=== PATIENT | male | born 1995 | race African-American/Black ===

== ENCOUNTER 2020-11-27 08:33 | Emergency (ER) | payer OTHER, SELFPAY ==
[2020-11-27 10:42] LABS: SARS-COV-2 RT PCR NEGATIVE (NEGATIVE)
--- NOTE | 2020-11-27 10:59 | ER ---
Nurse's Notes [facility] Name: Arthur Scanlon Jr Age: 25 yrs Sex: Male : 1995 Arrival Date: 11/27/2020 Time: 08:35 Bed 6 Private MD: Diagnosis: Acute pharyngitis Presentation: 11/27 08:47 Chief complaint: Patient states: Sore throat, cough, N/V/D, intermittent fever, DUBON x 1 jl7 week, reports sore chest with cough. Coronavirus screen: Client denies travel out of the [place] in the last 14 days. cough unrelated to allergies, diarrhea, fever, headache, nausea, runny nose, sore throat, vomiting. Ebola Screen: No symptoms or risks identified at this time. Initial Sepsis Screen: Does the patient meet any 2 criteria? No. Patient's initial sepsis screen is negative. Does the patient have a suspected source of infection? No. Patient's initial sepsis screen is negative. Risk Assessment: Do you want to hurt yourself or someone else? Patient reports no desire to harm self or others. Onset of symptoms was November 21, 2020. Care prior to arrival: None. 08:47 Method Of Arrival: Ambulatory jl7 08:47 Acuity: BHARATH 4 jl7 Triage Assessment: 08:50 General: Appears in no apparent distress. uncomfortable, Behavior is calm, cooperative, jl7 appropriate for age. Pain: Complains of pain in DUBON, Sore throat Pain currently is 8 out of 10 on a pain scale. EENT: Oral mucosa is dry. Neuro: Level of Consciousness is awake, alert, obeys commands, Oriented to person, place, time, situation. Cardiovascular: Patient's skin is warm and dry. Respiratory: Airway is patent Respiratory effort is even, unlabored, Respiratory pattern is regular, symmetrical. GI: Reports diarrhea, nausea, vomiting. Derm: Skin is dry, Skin is normal, Skin temperature is warm. Historical: - Allergies: 08:50 PENICILLINS; jl7 - Home Meds: 08:50 None [Active]; jl7 - PMHx: 08:50 None; jl7 - PSHx: 08:50 None; jl7 - Immunization history:: Adult Immunizations not up to date. - Social history:: Smoking status: Patient denies any tobacco usage or history of. - Family history:: not pertinent. - Hospitalizations: : No recent hospitalization is reported. Screenin:00 Abuse screen: Denies threats or abuse. Denies injuries from another. Nutritional jl7 screening: No deficits noted. Tuberculosis screening: No symptoms or risk factors identified. Fall Risk None identified. Assessment: 09:00 General: see triage assessment. jl7 10:27 Reassessment: Patient appears in no apparent distress at this time. No changes from jl7 previously documented assessment. Patient and/or family updated on plan of care and expected duration. Pain level reassessed. Patient is alert, oriented x 3, equal unlabored respirations, skin warm/dry/pink. Awaiting lab results. 10:59 Reassessment: ERD at bedside discussing results and POC. jl7 Vital Signs: 08:47 BP 147 / 97; Pulse 77; Resp 17; Temp 98; Pulse Ox 98% ; Weight 124.74 kg; Height 6 ft. jl7 0 in. (182.88 cm); Pain 8/10; 10:26 BP 120 / 80; Pulse 84; Resp 15; Pulse Ox 97% ; jl7 08:47 Body Mass Index 37.30 (124.74 kg, 182.88 cm) jl7 ED Course: 08:35 Patient arrived in ED. ag5 08:40 Peterson Squires MD is Attending Physician. rn 08:41 Debbie Pena, FARTUN is Primary Nurse. jl7 08:49 Triage completed. jl7 08:50 Arm band placed on right wrist. jl7 09:00 Patient has correct armband on for positive identification. Bed in low position. Call jl7 light in reach. Side rails up X 1. Pulse ox on. NIBP on. 09:20 COVID swab sent to lab. Strep swab sent to lab. jl7 11:03 No provider procedures requiring assistance completed. Patient did not have IV access jl7 during this emergency room visit. Administered Medications: No medications were administered Outcome: 10:58 Discharge ordered by . rn 11:03 Discharged to home ambulatory. jl7 11:03 Condition: stable 11:03 Discharge instructions given to patient, Instructed on discharge instructions, follow up and referral plans. medication usage, Demonstrated understanding of instructions, follow-up care, medications, Prescriptions given X 1. 11:04 Patient left the ED. jl7 Signatures: Peterson Squires MD MD rn Debbie Pena RN RN jl7 Catalina Headley ag5
--- NOTE | 2020-11-27 10:59 | EDPHYS ---
Physician Documentation [facility] Name: Arthur Scanlon Jr Age: 25 yrs Sex: Male : 1995 Arrival Date: 11/27/2020 Time: 08:35 Bed 6 Private MD: ED Physician Peterson Squires HPI: 11/27 08:48 This 25 yrs old Black Male presents to ER via Unassigned with complaints of Sore rn Throat, cough, URI. 08:48 The patient presents with sore throat. The patient describes throat pain as rn intermittent, raw. Onset: The symptoms/episode began/occurred 1 week(s) ago. Severity of symptoms: At their worst the symptoms were mild, in the emergency department the symptoms are unchanged. Modifying factors: The symptoms are alleviated by nothing. Associated signs and symptoms: Pertinent positives: cough, rhinorrhea, Sore throat Pertinent negatives fever, shortness of breath. The patient has experienced similar episodes in the past. The patient has not recently seen a physician. Reports sore throat, runny nose, nausea, diarrhea, fatigue, taste is a little off, present for 1 week. Girlfriend's mom with COVID but no direct exposure. . Historical: - Allergies: 08:50 PENICILLINS; jl7 - Home Meds: 08:50 None [Active]; jl7 - PMHx: 08:50 None; jl7 - PSHx: 08:50 None; jl7 - Immunization history:: Adult Immunizations not up to date. - Social history:: Smoking status: Patient denies any tobacco usage or history of. - Family history:: not pertinent. - Hospitalizations: : No recent hospitalization is reported. ROS: 08:48 Constitutional: Negative for fever, chills, and weight loss, Eyes: Negative for injury, rn pain, redness, and discharge, ENT: + sore throat and nasal congestion Neck: Negative for injury, pain, and swelling, Cardiovascular: Negative for palpitations, and edema, Respiratory: + cough, neg for sob and hemoptysis Abdomen/GI: Negative for abdominal pain, and constipation, Back: Negative for injury and pain, MS/Extremity: Negative for injury and deformity, Skin: Negative for injury, rash, and discoloration, Neuro: Negative for headache, weakness, numbness, tingling, and seizure. Exam: 08:48 Constitutional: This is a well developed, well nourished patient who is awake, alert, rn and in no acute distress. Ambulatory to room without difficulty. Head/Face: Normocephalic, atraumatic. Eyes: Pupils equal round and reactive to light, extra-ocular motions intact. Lids and lashes normal. Conjunctiva and sclera are non-icteric and not injected. Cornea within normal limits. Periorbital areas with no swelling, redness, or edema. ENT: MMM, mild pharyngeal erythema, no exudate, no swelling, uvula midline Neck: Trachea midline, no masses palpated, and no cervical lymphadenopathy. Supple, full range of motion without nuchal rigidity, or vertebral point tenderness. No Meningismus. Cardiovascular: Regular rate and rhythm. No pulse deficits. Respiratory: No increased work of breathing, no retractions or nasal flaring. Abdomen/GI: soft, non-tender Skin: Warm, dry MS/ Extremity: Pulses equal, no cyanosis. Vital Signs: 08:47 BP 147 / 97; Pulse 77; Resp 17; Temp 98; Pulse Ox 98% ; Weight 124.74 kg; Height 6 ft. jl7 0 in. (182.88 cm); Pain 8/10; 10:26 BP 120 / 80; Pulse 84; Resp 15; Pulse Ox 97% ; jl7 08:47 Body Mass Index 37.30 (124.74 kg, 182.88 cm) jl7 MDM: 08:40 Patient medically screened. rn 10:58 Differential diagnosis: group A strep tonsillitis, influenza, pharyngitis, upper rn respiratory infection, viral syndrome COVID. Data reviewed: vital signs, nurses notes, lab test result(s), and as a result, I will discharge patient. Counseling: I had a detailed discussion with the patient and/or guardian regarding: the historical points, exam findings, and any diagnostic results supporting the discharge/admit diagnosis, lab results, the need for outpatient follow up, to return to the emergency department if symptoms worsen or persist or if there are any questions or concerns that arise at home. Special discussion: I discussed with the patient/guardian in detail that at this point there is no indication for admission to the hospital. It is understood, however, that if the symptoms persist or worsen the patient needs to return immediately for re-evaluation. 11/27 08:48 Order name: Strep; Complete Time: 10:41 rn 11/27 10:40 Order name: Throat Culture EDMS 11/27 10:42 Order name: COVID-19/FLU A+B; Complete Time: 10:57 EDWV Administered Medications: No medications were administered Disposition: 11/27/20 10:58 Discharged to Home. Impression: Acute pharyngitis. - Condition is Stable. - Discharge Instructions: Pharyngitis. - Prescriptions for Zithromax Z- Manpreet 250 mg Oral Tablet - take 1 tablet by ORAL route as directed for 5 days Day 1 - take two (2) tablets one time. Day 2, 3, 4 , 5 take one (1) tablet once daily.; 6 tablet. - Medication Reconciliation Form, Thank You Letter, Antibiotic Education, Prescription Opioid Use form. - Follow up: Private Physician; When: As needed; Reason: Recheck today's complaints, Re-evaluation by your physician. - Problem is new. - Symptoms have improved. Signatures: Dispatcher [employer] [facility] Peterson Squires MD MD rn Leal, Jahala, RN RN jl7 Corrections: (The following items were deleted from the chart) 09:45 08:49 CORONAVIRUS+MR.LAB.BRZ ordered. [facility] EDWV 11:04 10:58 11/27/2020 10:58 Discharged to Home. Impression: Acute pharyngitis. Condition is jl7 Stable. Forms are Medication Reconciliation Form, Thank You Letter, Antibiotic Education, Prescription Opioid Use. Follow up: Private Physician; When: As needed; Reason: Recheck today's complaints, Re-evaluation by your physician. Problem is new. Symptoms have improved. rn
[2020-11-27 11:08] VITALS: TEMP 98
[2020-11-27 11:09] VITALS: BP 120/80; O2SAT 97
== END 2020-11-27 11:04 | disposition home or self-care (01) ==
LOC: ER 08:33
DX: J02.9 Acute pharyngitis, unspecified (principal); Z20.822 Contact with and (suspected) exposure to COVID-19; Z88.0 Allergy status to penicillin
CPT/HCPCS: 0240U; 87070; 87081; 99283

== ENCOUNTER 2024-06-08 14:01 | Emergency (ER) | payer OTHER ==
--- NOTE | 2024-06-08 14:30 | ER ---
Nurse's Notes [facility] Name: Arthur Scanlon Jr Age: 28 yrs Sex: Male : 1995 Arrival Date: 06/08/2024 Time: 14:01 Bed DX1 Private MD: Diagnosis: Acute pharyngitis, unspecified Presentation: 06/08 14:22 Chief complaint: Patient states: was diagnosed with strep throat last Saturday, has been tm6 taking antibiotics, but throat pain has gotten worse. Has not been able to sleep due to pain. Has not been able to eat for several day. Coronavirus screen: Vaccine status: Patient reports being unvaccinated. Ebola Screen: Patient negative for fever greater than or equal to 101.5 degrees Fahrenheit, and additional compatible Ebola Virus Disease symptoms Patient denies exposure to infectious person. Patient denies travel to an Ebola-affected area in the 21 days before illness onset. No symptoms or risks identified at this time. Initial Sepsis Screen: Does the patient meet any 2 criteria? No. Patient's initial sepsis screen is negative. Does the patient have a suspected source of infection? No. Patient's initial sepsis screen is negative. Risk Assessment: Do you want to hurt yourself or someone else? Patient reports no desire to harm self or others. Onset of symptoms was June 01, 2024. 14:22 Method Of Arrival: Ambulatory tm6 14:22 Acuity: BHARATH 4 tm6 Triage Assessment: 14:25 General: Appears in no apparent distress. Behavior is calm, cooperative. Pain: tm6 Complains of pain in neck Pain currently is 8 out of 10 on a pain scale. Pain began one week ago. EENT: Reports pain in throat since x 1 week. Neuro: Level of Consciousness is awake, alert, obeys commands, Oriented to person, place, time, situation. Cardiovascular: Patient's skin is warm and dry. Respiratory: Airway is patent Respiratory effort is even, unlabored, Respiratory pattern is regular, symmetrical. GI: No signs and/or symptoms were reported involving the gastrointestinal system. Abdomen is round. : No signs and/or symptoms were reported regarding the genitourinary system. Derm: No signs and/or symptoms reported regarding the dermatologic system. Musculoskeletal: No signs and/or symptoms reported regarding the musculoskeletal system. Historical: - Allergies: 14:25 PENICILLINS; tm6 - PMHx: 14:25 None; tm6 - PSHx: 14:25 None; tm6 - Immunization history:: Client reports having NOT received the Covid vaccine. - Infectious Disease History:: Denies. - Social history:: Smoking status: Reported history of juuling and/or vaping. Patient/guardian denies using alcohol. Screenin:27 [place] ED Fall Risk Assessment (Adult) History of falling in the last 3 months, tm6 including since admission No falls in past 3 months (0 pts) Confusion or Disorientation No (0 pts) Intoxicated or Sedated No (0 pts) Impaired Gait No (0 pts) Mobility Assist Device Used No (0 pt) Altered Elimination No (0 pt) Score/Fall Risk Level 0 - 2 = Low Risk Oriented to surroundings, Maintained a safe environment, Educated pt \T\ family on fall prevention, incl call for assistance when getting out of bed. Abuse screen: Denies threats or abuse. Denies injuries from another. Nutritional screening: No deficits noted. Tuberculosis screening: No symptoms or risk factors identified. Assessment: 14:27 Reassessment: see triage assessment. Respiratory: Airway is patent Respiratory effort tm6 is even, unlabored, Respiratory pattern is regular, symmetrical, Breath sounds are clear. 14:49 EENT: Throat is reddened. tm6 Vital Signs: 14:22 BP 169 / 95; Pulse 77; Resp 19; Temp 99.6(O); Pulse Ox 96% on R/A; Weight 131.54 kg; tm6 Height 5 ft. 11 in. ; Pain 8/10; 14:47 BP 169 / 96; Pulse 84; Resp 19; Temp 99.6; Pulse Ox 98% on R/A; Pain 7/10; tm6 14:22 Body Mass Index 40.45 (131.54 kg, 180.34 cm) tm6 14:22 Pain Scale: Adult tm6 14:47 Pain Scale: Adult tm6 ED Course: 14:05 Patient arrived in ED. ra3 14:08 Kiran Porter DO is Attending Physician. ms3 14:25 Triage completed. tm6 14:25 Arm band placed on right wrist. tm6 14:27 Patient has correct armband on for positive identification. Provided Education on: tm6 medication usage. 14:27 No provider procedures requiring assistance completed. Patient did not have IV access tm6 during this emergency room visit. 14:28 Curt Menon DO is Referral Physician. ms3 Administered Medications: 14:27 CANCELLED (Physician Discretion): Decadron - [id number] mg IVP once ms3 14:47 Drug: Dexamethasone IM 10 mg IM once Route: IM; Site: left deltoid; tm6 14:48 Follow up: Response: Medication administered at discharge. tm6 Medication: 14:27 VIS not applicable for this client. tm6 Outcome: 14:29 Discharge ordered by MD. ms3 14:49 Discharged to home ambulatory, with family, tm6 14:49 Condition: stable 14:49 Discharge instructions given to patient, family, Instructed on discharge instructions, follow up and referral plans. Demonstrated understanding of instructions, follow-up care, 14:49 Patient left the ED. tm6 Signatures: Kiran Porter DO DO ms3 Arielle Treadwell, RN RN tm6 Mikaela Singh 3
--- NOTE | 2024-06-08 14:30 | EDPHYS ---
Physician Documentation [facility] Name: Arthur Scanlon Jr Age: 28 yrs Sex: Male : 1995 Arrival Date: 06/08/2024 Time: 14:01 Bed DX1 Private MD: ED Physician Kiran Porter HPI: 06/08 14:29 This 28 yrs old Black Male presents to ER via Ambulatory with complaints of Sore Throat.ms3 14:29 28-year-old male with no past medical history presents to the emergency department for ms3 throat pain. Patient states he was seen in the emergency department 1 week ago and diagnosed with strep throat and has taken his antibiotics. Patient rates his throat discomfort an 8/10. He denies any alleviating factors. He states the pain is worse with swallowing.. Historical: - Allergies: 14:25 PENICILLINS; tm6 - PMHx: 14:25 None; tm6 - PSHx: 14:25 None; tm6 - Immunization history:: Client reports having NOT received the Covid vaccine. - Infectious Disease History:: Denies. - Social history:: Smoking status: Reported history of juuling and/or vaping. Patient/guardian denies using alcohol. ROS: 14:29 Constitutional: Negative for fever, and chills. Neck: Negative for injury, pain, and ms3 swelling, Cardiovascular: Negative for chest pain, and palpitations. Respiratory: Negative for shortness of breath, cough, wheezing, and pleuritic chest pain, Abdomen/GI: Negative for abdominal pain, nausea, vomiting, diarrhea, and constipation, 14:29 ENT: Positive for sore throat, Exam: 14:39 Constitutional: This is a well developed, well nourished patient who is awake, alert, ms3 and in no acute distress. Head/Face: Normocephalic, atraumatic. 14:39 ENT: Mouth: Posterior pharynx: erythema, that is moderate, exudate, is not appreciated, peritonsillar mass, is not appreciated, pooling of secretions, is not appreciated, Vital Signs: 14:22 BP 169 / 95; Pulse 77; Resp 19; Temp 99.6(O); Pulse Ox 96% on R/A; Weight 131.54 kg; tm6 Height 5 ft. 11 in. ; Pain 8/10; 14:47 BP 169 / 96; Pulse 84; Resp 19; Temp 99.6; Pulse Ox 98% on R/A; Pain 7/10; tm6 14:22 Body Mass Index 40.45 (131.54 kg, 180.34 cm) tm6 14:22 Pain Scale: Adult tm6 14:47 Pain Scale: Adult tm6 MDM: 14:29 Patient medically screened. ms3 14:39 Differential diagnosis: cindy-murray virus, tonsillitis, upper respiratory infection, ms3 viral syndrome. Data reviewed: vital signs, nurses notes, and as a result, I will discharge patient. I considered the following discharge prescriptions or medication management in the emergency department Medications were administered in the Emergency Department. See MAR. Counseling: I had a detailed discussion with the patient and/or guardian regarding the historical points, exam findings, and any diagnostic results supporting the discharge/admit diagnosis, lab results, the need for outpatient follow up, to return to the emergency department if symptoms worsen or persist or if there are any questions or concerns that arise at home. Special discussion: I discussed with the patient/guardian in detail that at this point there is no indication for admission to the hospital. It is understood, however, that if the symptoms persist or worsen the patient needs to return immediately for re-evaluation. ED course: Discussed physical exam findings with patient. Patient to follow-up with primary care physician in 2 to 3 days. Patient understands and agrees with plan. All questions were answered. Return precautions discussed include worsening symptoms, or any other concerns. Administered Medications: 14:27 CANCELLED (Physician Discretion): Decadron - [id number] mg IVP once ms3 14:47 Drug: Dexamethasone IM 10 mg IM once Route: IM; Site: left deltoid; tm6 14:48 Follow up: Response: Medication administered at discharge. tm6 Disposition Summary: 06/08/24 14:29 Discharge Ordered Notes: Location: Home ms3 Condition: Stable ms3 Diagnosis - Acute pharyngitis, unspecified ms3 Followup: ms3 - With: Curt Menon DO - When: 2 - 3 days - Reason: Recheck today's complaints Discharge Instructions: - Discharge Summary Sheet ms3 - Pharyngitis ms3 - Sore Throat ms3 Forms: - Medication Reconciliation Form ms3 - Antibiotic Education ms3 - Prescription Opioid Use ms3 - Patient Portal Instructions ms3 - Leadership Thank You Letter ms3 Signatures: Kiran Porter DO DO ms3 Arielle Treadwell RN RN tm6 Corrections: (The following items were deleted from the chart) 14:27 14:27 Decadron - Dexamethasone IVP 10 mg IVP once ordered. ms3 ms3
[2024-06-08] MEDS ORDERED: dexAMETHasone 10 MG/ML VIAL ONE (14:41)
[2024-06-08 14:58] VITALS: TEMP 99.6
[2024-06-08 14:59] VITALS: BP 169/96; O2SAT 98
== END 2024-06-08 14:49 | disposition home or self-care (01) ==
LOC: ER 14:01
DX: J02.9 Acute pharyngitis, unspecified (principal)
CPT/HCPCS: J1100